=== PATIENT | female | born 1950 | race Hispanic/Latino ===

== ENCOUNTER 2018-05-14 12:27 | Inpatient (IN) | payer OTHER ==
[2018-05-14 13:37] LABS: Absolute Lymphocytes (CBC) 2.8 K/uL (0.7-4.9); Absolute Monocytes 0.4 K/uL (0.1-1.3); Absolute Neutrophil 4.9 K/uL (1.8-8.0); Basophils % 0.6 % (0-1.3); Eosinophils % 0.9 % (0-4.4); Hematocrit 40.3 % (36.0-45.0); Lymphocytes % 34.1 % (15.3-44.8); MCH 30.3 pg (27.0-35.0); MCV 89.9 fL (80-100); MPV 11.6 fL (7.6-11.3); Monocytes % 4.3 % (3.3-12.3); RBC Red Blood Cell Count 4.49 M/uL (3.86-4.86)
[2018-05-14 13:38] LABS: Protime INR 1.08
[2018-05-14 13:57] LABS: BUN Blood Urea Nitrogen 19 mg/dL (7-18); Bicarbonate 24 mmol/L (21-32); Glucose Level 112 mg/dL (74-106); NT PRO-BNP 332 pg/mL (<125); Potassium 3.3 mmol/L (3.5-5.1); Sodium Level 141 mmol/L (136-145); Troponin (Emerg Dept Use Only) < 0.02 ng/mL (0.0-0.045)
--- NOTE | 2018-05-14 14:31 | RAD REPORT ---
EXAM DESCRIPTION: Eddie Single View05/14/2018 1:40 pm CLINICAL HISTORY: Chest pain COMPARISON: 2010 FINDINGS: The lungs appear clear of acute infiltrate. The heart is normal size IMPRESSION: No acute abnormalities displayed
--- NOTE | 2018-05-14 14:38 | RAD REPORT ---
EXAM DESCRIPTION: CT - Thorax W/ Con - 05/14/2018 2:27 pm CLINICAL HISTORY: Chest pain COMPARISON: None TECHNIQUE: Computed axial tomography of the chest was obtained. 100 cc Isovue 300 was administered i ntravenously. All CT scans are performed using dose optimization technique as appropriate and may include automated exposure control or mA/KV adjustment according to patient size. FINDINGS: The lungs are clear. No mediastinal or hilar lymphadenopathy is seen. A pleural effusion is not present. A pericardial effusion is not seen Coronary arterial calcifications are seen Small hepatic cyst is present. An additional tiny low-density lesion within liver is too small to leda racterize by CT criteria IMPRESSION: Unremarkable CT chest
[2018-05-14] MEDS ORDERED: FENTANYL CITR 100 MCG/2 ML ONE (14:42)
[2018-05-14] MEDS ORDERED: MORPHINE 4 MG/ML SYR IV PRN ×2 (15:42→22:42)
[2018-05-14] MEDS ORDERED: ONDANSETRON 4 MG/2 ML VIAL IV PRN (15:42)
[2018-05-14] MEDS ORDERED: NITROGLYCERIN 0.4 MG/TAB SL PRN (15:42)
[2018-05-14] MEDS ORDERED: ACETAMINOPHEN 500 MG TAB PO PRN ×2 (15:42→22:42)
--- NOTE | 2018-05-14 15:55 | EDPHYS ---
Physician Documentation [facility] Name: Magi Rivas Age: 67 yrs Sex: Female : 1950 Arrival Date: 05/14/2018 Time: 12:31 Bed 7 Private MD: ED Physician Brandon Del Rosario HPI: 05/14 15:42 This 67 yrs old Female presents to ER via EMS with complaints of Pain All gs Over, Chest Pain. 15:42 The patient or guardian reports chest pain that is located primarily in the substernal gs area, anterior chest wall. Onset: this morning. The pain radiates to back. Associated signs and symptoms: Pertinent positives: shortness of breath. The chest pain is described as a heaviness, sharp. Duration: The patient or guardian reports multiple episodes, that wax and wane, with no pattern, the episodes last approximately 5 minute(s). Modifying factors: The symptoms are alleviated by nothing. the symptoms are aggravated by nothing. Severity of pain: At its worst the pain was severe in the emergency department the pain is unchanged. The patient has experienced similar episodes in the past, a few times. Historical: - Allergies: 12:36 Adhesives; sv 12:36 Codeine; sv - Home Meds: 12:36 losartan oral oral [Active]; sv - PMHx: 12:36 Hypertension; sv - Immunization history:: Adult Immunizations up to date. - Social history:: Smoking status: Patient/guardian denies using tobacco. - Ebola Screening: : No symptoms or risks identified at this time. ROS: 15:42 All other systems are negative. gs Exam: 15:42 Head/Face: Normocephalic, atraumatic. Eyes: Pupils equal round and reactive to light, gs extra-ocular motions intact. Lids and lashes normal. Conjunctiva and sclera are non-icteric and not injected. Cornea within normal limits. Periorbital areas with no swelling, redness, or edema. ENT: Nares patent. No nasal discharge, no septal abnormalities noted. Tympanic membranes are normal and external auditory canals are clear. Oropharynx with no redness, swelling, or masses, exudates, or evidence of obstruction, uvula midline. Mucous membranes moist. Neck: Trachea midline, no thyromegaly or masses palpated, and no cervical lymphadenopathy. Supple, full range of motion without nuchal rigidity, or vertebral point tenderness. No Meningismus. Chest/axilla: Normal chest wall appearance and motion. Nontender with no deformity. No lesions are appreciated. Cardiovascular: Regular rate and rhythm with a normal S1 and S2. No gallops, murmurs, or rubs. Normal PMI, no JVD. No pulse deficits. Respiratory: Lungs have equal breath sounds bilaterally, clear to auscultation and percussion. No rales, rhonchi or wheezes noted. No increased work of breathing, no retractions or nasal flaring. Abdomen/GI: Soft, non-tender, with normal bowel sounds. No distension or tympany. No guarding or rebound. No evidence of tenderness throughout. Back: No spinal tenderness. No costovertebral tenderness. Full range of motion. Skin: Warm, dry with normal turgor. Normal color with no rashes, no lesions, and no evidence of cellulitis. MS/ Extremity: Pulses equal, no cyanosis. Neurovascular intact. Full, normal range of motion. Neuro: Awake and alert, GCS 15, oriented to person, place, time, and situation. Cranial nerves II-XII grossly intact. Motor strength 5/5 in all extremities. Sensory grossly intact. Cerebellar exam normal. Normal gait. 15:42 Constitutional: The patient appears alert, awake. 15:42 ECG was reviewed by the Attending Physician. Vital Signs: 12:36 BP 166 / 74; Pulse 101; Resp 18; Temp 97.4; Pulse Ox 98% ; Pain 8/10; sv 13:19 BP 170 / 56; Pulse 103 MON; Resp 16; Pulse Ox 99% on R/A; sv 13:42 Pulse 83; Resp 16; Pulse Ox 100% on R/A; sv 14:30 BP 194 / 77; Pulse 108 MON; Resp 14; Pulse Ox 99% ; sv 15:00 BP 183 / 67; Pulse 96 MON; Resp 16; Pulse Ox 97% on R/A; sv 15:30 BP 185 / 77; Pulse 106; Resp 17; Pulse Ox 99% ; sv 16:30 BP 132 / 47; Pulse 85; Resp 18; Pulse Ox 99% ; sv 17:17 BP 113 / 50; Pulse 81; Resp 19; Pulse Ox 97% ; sv 13:19 Sinus tachycardia sv 14:30 Sinus tachycardia sv 15:00 Sinus Rhythm sv MDM: 12:51 Patient medically screened. 15:42 Differential diagnosis: acute myocardial infarction, coronary artery disease thoracic gs aortic disection, unstable angina. Data reviewed: vital signs, nurses notes. Response to treatment: the patient's symptoms have resolved after treatment, the patient's pain is gone. Admission orders: after a detailed discussion of the patient's condition and case, the admit orders are written by me. 05/14 12:58 Order name: Basic Metabolic Panel; Complete Time: 14:19 05/14 12:58 Order name: CBC with Diff; Complete Time: 14:19 05/14 12:58 Order name: NT PRO-BNP; Complete Time: 14:19 05/14 12:58 Order name: PT-INR; Complete Time: 14:19 05/14 12:58 Order name: Troponin (emerg Dept Use Only); Complete Time: 14:19 05/14 15:21 Order name: CPK 05/14 15:46 Order name: CBC with Automated Diff [facility] 05/14 15:46 Order name: Comprehensive Metabolic Panel [facility] 05/14 15:46 Order name: CKMB Creatine Kinase MB [facility] 05/14 15:47 Order name: CKMB Creatine Kinase MB [facility] 05/14 15:47 Order name: CKMB Creatine Kinase MB [facility] 05/14 15:47 Order name: CKMB Creatine Kinase MB [facility] 05/14 15:47 Order name: Creatine Phosphokinase [facility] 05/14 15:47 Order name: Creatine Phosphokinase [facility] 05/14 12:38 Order name: EKG; Complete Time: 12:38 sv 05/14 12:38 Order name: EKG - Nurse/Tech; Complete Time: 12:38 sv 05/14 12:58 Order name: XRAY Chest (1 view); Complete Time: 14:42 05/14 12:58 Order name: EKG; Complete Time: 12:59 05/14 12:58 Order name: Cardiac monitoring; Complete Time: 13:20 05/14 12:58 Order name: CT Chest W/ Con; Complete Time: 14:42 05/14 15:46 Order name: Heart Healthy [facility] 05/14 15:47 Order name: Creatine Phosphokinase [facility] 05/14 15:47 Order name: Creatine Phosphokinase [facility] 05/14 15:47 Order name: Lipid Profile [facility] 05/14 15:47 Order name: Lipid Profile [facility] 05/14 15:47 Order name: Troponin I [facility] 05/14 15:47 Order name: Troponin I [facility] 05/14 15:47 Order name: Troponin I [facility] 05/14 15:47 Order name: Troponin I [facility] 05/14 12:58 Order name: IV Saline Lock; Complete Time: 13:20 05/14 12:58 Order name: Labs collected and sent; Complete Time: 13:20 05/14 12:58 Order name: O2 Per Protocol; Complete Time: 13:20 05/14 12:58 Order name: O2 Sat Monitoring; Complete Time: 13:20 EC:42 Rate is 99 beats/min. Rhythm is regular. OH interval is normal. QRS interval is normal. gs QT interval is normal. T waves are Inverted. Administered Medications: 14:43 Drug: fentaNYL (PF) 50 mcg Route: IVP; Site: left antecubital; sv 15:28 Follow up: Response: No adverse reaction sv Disposition: 15:42 Critical Care:. gs Disposition: 05/14/18 15:53 Hospitalization ordered by Marita Garg for Observation. Preliminary diagnosis is Precordial pain. - Bed requested for Telemetry/MedSurg (observation). - Status is Observation. sv - Condition is Stable. - Problem is new. - Symptoms have improved. UTI on Admission? No Critical care time excluding procedures: 15:42 Critical care time: Bedside Care: 10 minutes, Consultation: 10 minutes, Family gs Intervention: 10 minutes. Total time: 30 minutes Signatures: [facility] G[facility] RN RN Brandon Del Rosario MD MD Lena Parker Corrections: (The following items were deleted from the chart) 13:20 12:58 EKG - Nurse/Tech ordered. sv 16:59 15:53 Hospitalization Ordered by Marita Garg MD for Observation. Preliminary eb diagnosis is Precordial pain. Bed requested for Telemetry/MedSurg (observation). Status is Observation. Condition is Stable. Problem is new. Symptoms have improved. UTI on Admission? No. gs 17:52 16:59 05/14/2018 15:53 Hospitalization Ordered by Marita Garg MD for Observation. sv Preliminary diagnosis is Precordial pain. Bed requested for Telemetry/MedSurg (observation). Status is Observation. Condition is Stable. Problem is new. Symptoms have improved. UTI on Admission? No. eb
--- NOTE | 2018-05-14 15:55 | ER ---
Nurse's Notes [facility] Name: Magi Rivas Age: 67 yrs Sex: Female : 1950 Arrival Date: 05/14/2018 Time: 12:31 Bed 7 Private MD: Diagnosis: Precordial pain Presentation: 05/14 12:21 Presenting complaint: EMS states: pt was lowered to the ground by bystanders after pt sv feeling like she was going to pass out. c/o pain all over, left hip and chest pain. Denies LOC. BP 112/42 HR-84 RR-20 97% RA. Transition of care: patient was not received from another setting of care. Onset of symptoms was May 14, 2018. Risk Assessment: Do you want to hurt yourself or someone else? Patient reports no desire to harm self or others. Initial Sepsis Screen: Does the patient meet any 2 criteria? No. Patient's initial sepsis screen is negative. Does the patient have a suspected source of infection? No. Patient's initial sepsis screen is negative. Care prior to arrival: IV initiated. 20 GA, in the left forearm. 12:21 Method Of Arrival: EMS: [facility] sv 12:21 Acuity: GERI 3 sv Triage Assessment: 12:21 General: Appears uncomfortable, well developed, Behavior is cooperative, anxious, sv fussy. Pain: Complains of pain in "all over" Pain currently is 8 out of 10 on a pain scale. Is continuous. EENT: No signs and/or symptoms were reported regarding the EENT system. Neuro: Level of Consciousness is awake, alert, obeys commands, Oriented to person, place, time, situation, Moves all extremities. Speech is normal. Cardiovascular: Patient's skin is warm and dry. Pulses are 3+ in right radial artery and left radial artery Rhythm is sinus tachycardia. Respiratory: Airway is patent Respiratory effort is even, unlabored, Respiratory pattern is regular, symmetrical. Derm: Skin is pink, warm \\T\\ dry. Historical: - Allergies: 12:36 Adhesives; sv 12:36 Codeine; sv - Home Meds: 12:36 losartan oral oral [Active]; sv - PMHx: 12:36 Hypertension; sv - Immunization history:: Adult Immunizations up to date. - Social history:: Smoking status: Patient/guardian denies using tobacco. - Ebola Screening: : No symptoms or risks identified at this time. Screenin:39 Abuse screen: Denies threats or abuse. Denies injuries from another. Nutritional sv screening: No deficits noted. Tuberculosis screening: No symptoms or risk factors identified. Fall Risk None identified. Assessment: 13:34 Reassessment: Patient appears in no apparent distress at this time. No changes from sv previously documented assessment. Patient and/or family updated on plan of care and expected duration. Pain level reassessed. Patient is alert, oriented x 3, equal unlabored respirations, skin warm/dry/pink. Pt noted to be crying intermittently. 14:43 Reassessment: Patient appears in no apparent distress at this time. No changes from sv previously documented assessment. Patient and/or family updated on plan of care and expected duration. Pain level reassessed. Patient is alert, oriented x 3, equal unlabored respirations, skin warm/dry/pink. 16:00 Reassessment: Patient appears in no apparent distress at this time. No changes from sv previously documented assessment. Patient and/or family updated on plan of care and expected duration. Pain level reassessed. Patient is alert, oriented x 3, equal unlabored respirations, skin warm/dry/pink. 17:17 Reassessment: Patient appears in no apparent distress at this time. Patient and/or sv family updated on plan of care and expected duration. Pain level reassessed. Patient is alert, oriented x 3, equal unlabored respirations, skin warm/dry/pink. Patient states symptoms have improved. Vital Signs: 12:36 BP 166 / 74; Pulse 101; Resp 18; Temp 97.4; Pulse Ox 98% ; Pain 8/10; sv 13:19 BP 170 / 56; Pulse 103 MON; Resp 16; Pulse Ox 99% on R/A; sv 13:42 Pulse 83; Resp 16; Pulse Ox 100% on R/A; sv 14:30 BP 194 / 77; Pulse 108 MON; Resp 14; Pulse Ox 99% ; sv 15:00 BP 183 / 67; Pulse 96 MON; Resp 16; Pulse Ox 97% on R/A; sv 15:30 BP 185 / 77; Pulse 106; Resp 17; Pulse Ox 99% ; sv 16:30 BP 132 / 47; Pulse 85; Resp 18; Pulse Ox 99% ; sv 17:17 BP 113 / 50; Pulse 81; Resp 19; Pulse Ox 97% ; sv 13:19 Sinus tachycardia sv 14:30 Sinus tachycardia sv 15:00 Sinus Rhythm sv ED Course: 12:25 Patient has correct armband on for positive identification. Placed in gown. Bed in low sv position. Side rails up X2. surveillance system monitor on. Pulse ox on. NIBP on. Door closed. Head of bed elevated. 12:31 Patient arrived in ED. sv 12:31 Ct Gutiérrez RN is Primary Nurse. sv 12:35 Triage completed. sv 12:36 Brandon Del Rosario MD is Attending Physician. gs 12:37 Arm band placed on. sv 12:38 Initial lab(s) drawn, by mt, EKG done, by ED staff, reviewed by Brandon Del Rosario MD. jb1 Inserted saline lock: 22 gauge in left antecubital area, using aseptic technique. Blood collected. 12:40 Patient maintains SpO2 saturation greater than 95% on room air. sv 13:32 X-ray(s) taken. sv 13:37 XRAY Chest (1 view) In Process Unspecified. EDMS 13:38 X-ray completed. Portable x-ray completed in exam room. jr1 14:26 CT completed. Patient moved to CT via stretcher. Patient moved back from CT. cw1 14:27 CT Chest W/ Con In Process Unspecified. EDMS 15:52 Marita Garg MD is Hospitalizing Provider. gs 17:22 No provider procedures requiring assistance completed. Patient admitted, IV remains in sv place. intact. Administered Medications: 14:43 Drug: fentaNYL (PF) 50 mcg Route: IVP; Site: left antecubital; sv 15:28 Follow up: Response: No adverse reaction sv Outcome: 15:53 Decision to Hospitalize by Provider. gs 17:21 Admitted to Tele accompanied by tech, family with patient, via stretcher, room 410, sv with chart, Report called to Nik CROWLEY 17:21 Condition: stable 17:21 Instructed on the need for admit. 17:52 Patient left the ED. sv Signatures: Dispatcher [employer] EDMS Salvador Johnston jb1 Ct Gutiérrez RN RN sv Amie Oseguera jr1 Roberta Yang cw1 Brandon Del Rosario MD MD gs
[2018-05-14] MEDS ORDERED: ENOXAPARIN 100 MG/ML SYR SQ SCH (16:00)
[2018-05-14] MEDS ORDERED: POTASSIUM CL SA 10 MEQ TAB PO ONE (17:47)
[2018-05-14] MEDS ORDERED: INFLUENZA VACCINE (for 3y+) 0.5 ML DOSE IMVAC ONE (19:00)
[2018-05-14] MEDS ORDERED: METOPROLOL TAR 50 MG TAB PO SCH (21:00)
[2018-05-14] MEDS ORDERED: ATORVASTATIN 20 MG TAB PO SCH (21:00)
[2018-05-14] MEDS ORDERED: ALPRAZOLAM 0.25 MG TABLET PO PRN (22:42)
[2018-05-14] MEDS: HYDRALAZINE HCL 25 MG TABLET PO SCH (23:14)
[2018-05-15] MEDS ORDERED: ASPIRIN 325 MG TAB PO ONE (00:05)
[2018-05-15] MEDS ORDERED: CLOPIDOGREL 75 MG TABLET PO ONE (00:06)
[2018-05-15] MEDS ORDERED: ENOXAPARIN 80 MG/0.8 ML SQ ONE (01:00)
[2018-05-15 01:14] LABS: Urine Appearance CLEAR; Urine Bilirubin NEGATIVE (NEG); Urine Blood NEGATIVE (NEG); Urine Color YELLOW; Urine Glucose NEGATIVE (NEG); Urine Protein NEGATIVE (NEG); Urine Specific Gravity >=1.030 (1.005-1.030); Urine Urobilinogen 0.2 mg/dL (0.2-1.0); Urine pH 5.5 (5.0-7.0)
[2018-05-15 01:16] LABS: Urine Microscopic Reflex NO UMIC
[2018-05-15] MEDS ORDERED: POTASSIUM CL SA 10 MEQ TAB PO ONE (03:00)
--- NOTE | 2018-05-15 04:32 | P.HP ---
Certification for Inpatient Patient admitted to: Inpatient With expected LOS: >2 Midnights Patient will require the following post-hospital care: None Practitioner: I am a practitioner with admitting privileges, knowledge of patient current condition, hospital course, and medical plan of care. Services: Services provided to patient in accordance with Admission requirements found in Title 42 Section 412.3 of the Code of Federal Regulations Patient History Date of Service: 05/14/18 Reason for admission: Non ST-elevation myocardial infarction History of Present Illness: Patient is a 67-year-old female with a history of hypertension who presents the hospital with generalized pain. Patient states that she was with a friend when she got really weak and lightheaded. She felt she may not be getting enough blood to her brain so she went and healed over. Shortly after doing this she collapse. When she came too family was by her side. She is not exactly sure how much time past but she thinks it was only a few min. Which she was awake she was having generalized pain she had pain in her chest and her abdomen and in her back. She states she was diaphoretic and short of breath as well. She has some nausea associated with this. She came into the emergency room for further evaluation. Her initial EKG did not reveal any significant abnormality in her troponins were negative. She was admitted for observation however when I came on her troponins have come back elevated. She is no longer having any chest pain. She will be admitted for inpatient for non ST elevation myocardial infarction Allergies codeine Allergy (Verified 05/14/18 17:11) Hives adhesive tape Adverse Reaction (Verified 05/14/18 17:11) Rash Home Medications: Hydralazine [Apresoline*] 100 mg PO Q6H 05/14/18 Losartan Potassium [Cozaar*] 100 mg PO DAILY 05/14/18 Naproxen Sodium [Aleve] 1 tab PO Q6H PRN 05/14/18 Pantoprazole [Protonix Tab*] 40 mg PO DAILY 05/14/18 Simethicone 1 tab PO TID 05/14/18 hydroCHLOROthiazide [Hydrochlorothiazide*] 25 mg PO DAILY 05/14/18 - Past Medical/Surgical History Has patient received pneumonia vaccine in the past: Yes Diabetic: No -: Hypertensive -: R shoulder surgery (tumor removal) -: R foot surgery (biopsy) -: L breast biopsy - Family History Father Family History: Reviewed- Non-Contributory - Social History Smoking Status: Never smoker Alcohol use: No CD- Drugs: No Caffeine use: Yes Place of Residence: Home Review of Systems 10-point ROS is otherwise unremarkable Physical Examination - Vital Signs Temperature: 99.3 F Blood Pressure: 143/63 Pulse: 85 Respirations: 18 Pulse Ox (%): 94 - Physical Exam General: Alert, In no apparent distress, Oriented x3 HEENT: Atraumatic, PERRLA, Mucous membr. moist/pink, EOMI, Sclerae nonicteric Neck: Supple, 2+ carotid pulse no bruit, No LAD, Without JVD or thyroid abnormality Respiratory: Clear to auscultation bilaterally, Normal air movement Cardiovascular: Regular rate/rhythm, Normal S1 S2, No murmurs Gastrointestinal: Normal bowel sounds, Soft and benign, Non-distended, No tenderness Musculoskeletal: No clubbing, No swelling, No tenderness Integumentary: No rashes Neurological: Normal gait, Normal speech, Normal strength at 5/5 x4 extr, Normal tone, Sensation intact, Cranial nerves 3-12 intact, Normal affect Lymphatics: No axilla or inguinal lymphadenopathy - Studies Laboratory Data (last 24 hrs) 05/14/18 15:45: Troponin I Cancelled 05/14/18 13:10: PT 12.7 H, INR 1.08 05/14/18 13:10: WBC 8.2, Hgb 13.6, Hct 40.3, Plt Count 250 05/14/18 13:10: Sodium 141, Potassium 3.3 L, BUN 19 H, Creatinine 0.70, Glucose 112 H Assessment & Plan - Problems (Diagnosis) (1) Acute myocardial infarction Current Visit: Yes Status: Acute (2) Hypertension Current Visit: Yes Status: Acute - Plan 1. Serial troponins and EKG 2. Cardiology consultation 3. Echocardiogram and further intervention per Cardiology 4. Anti-platelet therapy, anti coagulation, beta-rl, statin, and O2 as needed 5. IV morphine for pain 6. Nitro p.r.n. 7. Lipid profile 8. If patient starts having any signs of worsening chest pain and her symptoms are worsening then will transfer her to ICU. 9. GI and DVT prophylaxis Discharge Plan: Home Plan to discharge in: Greater than 2 days - Advance Directives Does patient have a Living Will: Yes Does patient have a Durable POA for Healthcare: No - Code Status/Comfort Care Code Status Assessed: Yes Code Status: Full Code Critical Care: No Time Spent Managing PTS Care (In Minutes): 50
[2018-05-15] MEDS: HYDRALAZINE HCL 25 MG TABLET PO SCH ×4 (06:17→23:58)
[2018-05-15 06:32] LABS: Absolute Lymphocytes (CBC) 3.9 K/uL (0.7-4.9); Absolute Monocytes 0.5 K/uL (0.1-1.3); Absolute Neutrophil 4.6 K/uL (1.8-8.0); Basophils % 0.8 % (0-1.3); Hematocrit 37.6 % (36.0-45.0); Lymphocytes % 42.3 % (15.3-44.8); MCH 30.6 pg (27.0-35.0); MPV 11.7 fL (7.6-11.3); Monocytes % 5.4 % (3.3-12.3); RBC Red Blood Cell Count 4.18 M/uL (3.86-4.86)
[2018-05-15] MEDS ORDERED: LISINOPRIL 10 MG TAB PO SCH (09:00)
[2018-05-15] MEDS ORDERED: ENOXAPARIN 40 MG/0.4 ML SQ SCH (09:00)
[2018-05-15] MEDS ORDERED: ASPIRIN 325 MG TAB PO SCH (09:00)
[2018-05-15] MEDS ORDERED: hydroCHLOROthiazide 12.5 MG CAP PO SCH (09:00)
[2018-05-15] MEDS: PANTOPRAZOLE 40MG TABLET PO SCH (09:52)
[2018-05-15] MEDS: LOSARTAN POTASSIUM 50 MG TABLET PO SCH (09:52)
[2018-05-15] MEDS: METOPROLOL TAR 50 MG TAB PO SCH ×2 (09:52→21:14)
[2018-05-15] MEDS: ASPIRIN EC 81 MG TAB PO SCH (09:53)
[2018-05-15] MEDS: SIMETHICONE 125 MG TAB PO SCH ×3 (10:15→21:15)
[2018-05-15] MEDS: NA CHLORIDE 0.9% 1,000 ML IV SCH (13:48)
[2018-05-15] MEDS: ONDANSETRON 4 MG/2 ML VIAL IV PRN (14:52)
--- NOTE | 2018-05-15 18:19 | PN ---
Subjective: The patient currently doing well. She has no chest pain. No shortness of breath. No a bdominal pain. No fever. No chills. She continued to have nausea as she moves and go to the [facility]. Her family at the bedside. Review of Systems: Otherwise normal. Physical Examination: Vital Signs: Blood pressure is 157/70, respiratory rate 16, pulse 68, temperature 97.8. General: The patient is alert and oriented x3. Does not look in any distress. HEENT: Atraumatic, normocephalic. PERRLA. Oral mucosa is moist. Neck: Supple. No JVD. No carotid bruits. Chest: Clear to auscultation. Good air entry. Heart: Regular rate and rhythm. S1, S2 normal. No gallop or murmur. Abdomen: Soft, nontender. No masses. No hepatosplenomegaly. Positive bowel sounds. Extremities: No clubbing, cyanosis, or edema. No calf tenderness. Neurologic: Grossly intact. Cranial nerves 2 through 12 intact. Normal sensation. Normal reflexes . Normal muscle strength. Laboratory Data: Labs today showed CBC within normal. Chemistry within normal except for chloride 1 08, BUN of 24, GFR of 72, triglycerides 92, cholesterol 218, LDL of 134. Initial troponin was less t ramirez 0.02, on 1 repeat went up to 1.89. ProBNP at 332. CAT scan of the chest was negative for pulmon nicolle embolism. Assessment And Plan: This is a 67-year-old female with history of hypertension, presented with chest pain. 1.Chest pain. Rule out myocardial infarction. The patient had a positive troponin. We will contin ue troponin check until it starts to trend down. Last was 1.87. Continue the patient on aspirin, Pl avix, full dose of Lovenox. Cardiology consult requested. Most likely, the patient will need a card iac cath with positive troponin. 2.Hyperlipidemia. The patient's LDL is high. She is currently on statin with Lipitor 20 mg once a day. 3.Hypertension, not well controlled. She is on hydralazine, losartan, and metoprolol. I will add I mdur 30 mL. 4.Mild renal insufficiency. I will hold her hydrochlorothiazide and give her slight hydration becau se the patient may need cardiac cath tomorrow and she will receive contrast. 5.Plan to discharge after hopefully cardiac cath whenever Cardiology clears the patient for discharg eGeraldo UNDERWOOD Voice ID: [id number] Report ID: [id number]
--- NOTE | 2018-05-15 19:16 | EKG ---
Test Date: 2018-05-14 Test Time: 12:30:04 Sales And Marketing Representative: LELAND MEASUREMENT RESULTS: Intervals: Rate: 99 [place]: 124 QRSD: 92 QT: 360 QTc: 462 [place]: P: 59 [place]: 124 QRS: 26 T: 177 INTERPRETIVE STATEMENTS: Normal sinus rhythm Possible Left atrial enlargement Marked ST abnormality, possible inferolateral subendocardial injury Abnormal ECG Compared to ECG 02/03/2011 08:30:26 ST (T wave) deviation now present Electronically Signed On 05-15-18 19:14:53 CDT by Tom Ovalle
[2018-05-15] MEDS ORDERED: ATORVASTATIN 20 MG TAB PO SCH (21:00)
[2018-05-15] MEDS: ENOXAPARIN 80 MG/0.8 ML SQ SCH (21:14)
--- NOTE | 2018-05-16 03:04 | CON ---
Date of Consultation: 05/15/2018 Reason For Consultation: Non-ST elevation myocardial infarction. History Of Present Illness: Ms. Rivas is 67, has a history of hypertension, came in with substerna l chest pressure, some diaphoresis, shortness of breath. No nausea, vomiting, PND, orthopnea, pedal edema, palpitations, or syncope. EKG was nonspecific. Troponin was 0.96 and 1.89 consistent with no n-ST elevation myocardial infarction. Past Medical History: Hypertension. Family History: Positive for heart disease. Review of Systems: Negative. Social History: Negative. Allergies: CODEINE AND ADHESIVE. Medications At Home: Losartan, hydralazine, Aleve, Protonix and hydrochlorothiazide. Physical Examination: Vital Signs: Stable, afebrile. HEENT: Negative. Neck: Supple with no bruit. Chest: Clear. Cardiac: Regular rhythm and rate. No murmurs, gallops, or rubs. Abdomen: Benign. Extremities: No clubbing, cyanosis, or edema. Diagnostic Data: As stated earlier. Impression And Plan: 1.Non-ST elevation myocardial infarction. 2.Hypertension. 3.Gastroesophageal reflux disease. 4.Generalized arthritis. Left heart catheterization was recommended to Ms. Rivas with possible intervention. She understand s the risk and the benefit of the procedure and she agrees to proceed. Meanwhile, I will continue on medication for now including Lovenox, low-dose beta-blockers, and aspirin. She will eventually need a statin to find any coronary artery disease. DINORAH/ERMA Voice ID: [id number] Report ID: [id number]
[2018-05-16 05:18] LABS: BUN Blood Urea Nitrogen 18 mg/dL (7-18); Bicarbonate 26 mmol/L (21-32); Glucose Level 94 mg/dL (74-106); Magnesium 2.1 mg/dL (1.8-2.4); Potassium 3.8 mmol/L (3.5-5.1); Sodium Level 142 mmol/L (136-145)
[2018-05-16] MEDS: LOSARTAN POTASSIUM 50 MG TABLET PO SCH (05:18)
[2018-05-16] MEDS: METOPROLOL TAR 50 MG TAB PO SCH (05:19)
[2018-05-16] MEDS: HYDRALAZINE HCL 25 MG TABLET PO SCH ×3 (05:19→16:36)
[2018-05-16] MEDS: ASPIRIN EC 81 MG TAB PO SCH (05:20)
[2018-05-16] MEDS: NA CHLORIDE 0.9% 1,000 ML IV SCH ×2 (05:29→16:06)
[2018-05-16] MEDS ORDERED: KCL 20 MEQ/100 mL IVPB 20 MEQ/100 ML BAG IV SCH (06:00)
[2018-05-16] MEDS: ENOXAPARIN 80 MG/0.8 ML SQ SCH (08:06)
[2018-05-16] MEDS: PANTOPRAZOLE 40MG TABLET PO SCH (08:06)
[2018-05-16] MEDS: SIMETHICONE 125 MG TAB PO SCH ×2 (08:06→14:00)
[2018-05-16] MEDS ORDERED: ISOSORBIDE MONO SR 30 MG TAB PO SCH (09:00)
--- NOTE | 2018-05-16 09:09 | EKG ---
Test Date: 2018-05-15 Test Time: 08:51:58 Transcription: KIRSTEN MEASUREMENT RESULTS: Intervals: Rate: 76 TX: 128 QRSD: 86 QT: 412 QTc: 463 [place]: P: 58 TX: 128 QRS: 17 T: 116 INTERPRETIVE STATEMENTS: Normal sinus rhythm ST & T wave abnormality, consider lateral ischemia Abnormal ECG Compared to ECG 05/14/2018 12:30:04 Possible ischemia now present ST (T wave) deviation still present Electronically Signed On 05-16-18 09:08:34 CDT by Anthony Meraz
[2018-05-16] MEDS ORDERED: HEPA 1000U/500MLS 1,000 UNIT/500 ML BAG IV ONE (11:17)
[2018-05-16] MEDS ORDERED: MIDAZOLAM HCL 2 MG/2 ML INJ ONE ×2 (11:41→12:10)
[2018-05-16] MEDS ORDERED: FENTANYL CITR 100 MCG/2 ML ONE (11:41)
[2018-05-16] MEDS ORDERED: NA CHLORIDE 0.9% 0 ML ONE (11:42)
[2018-05-16] MEDS ORDERED: ATROPINE SULF 1 MG/10 ML SYR IV ONE (11:42)
[2018-05-16] MEDS ORDERED: POTASSIUM CL SA 10 MEQ TAB PO ONE (12:00)
--- NOTE | 2018-05-16 13:14 | ECHO ---
HEIGHT: 4 ft 11 in WEIGHT: 157 lb 0 oz DATE OF STUDY: 05/16/[address]: Lizzy Beaver MD 2-DIMENSIONAL: YES M.MODE: YES DOPPLER: YES COLOR FLOW: YES TDS: PORTABLE: DEFINITY: BUBBLE STUDY: DIAGNOSIS: CONGESTIVE HEART FAILURE CARDIAC HISTORY: CATHERIZATION: NO SURGERY: NO PROSTHETIC VALVE: NO PACEMAKER: NO MEASUREMENTS (cm) DIASTOLIC (NORMALS) SYSTOLIC (NORMALS) IVSd 1.4 (0.6-1.2) LA Diam 3.1 (1.9-4.0) LVEF 71% LVIDd 4.2 (3.5-5.7) LVIDs 2.5 (2.0-3.5) %FS 40% LVPWd 1.3 (0.6-1.2) Ao Diam 2.2 (2.0-3.7) 2 DIMENSIONAL ASSESSMENT: RIGHT ATRIUM: NORMAL LEFT ATRIUM: NORMAL RIGHT VENTRICLE: NORMAL LEFT VENTRICLE: NORMAL TRICUSPID VALVE: NORMAL MITRAL VALVE: NORMAL PULMONIC VALVE: NORMAL AORTIC VALVE: NORMAL PERICARDIAL EFFUSION: NONE AORTIC ROOT: NORMAL LEFT VENTRICULAR WALL MOTION: NORMAL DOPPLER/COLOR FLOW: MILD TRICUSPID REGURGITATION. COMMENTS: MILD TRICUSPID REGURGITATION. NORMAL RIGHT VENTRICULAR SYSTOLIC PRESSURE. NORMAL LEFT VENTRICULAR SIZE AND FUNCTION. NO WALL MOTION ABNORMALITY. TECHNOLOGIST: HERIBERTO CORDERO
[2018-05-16] MEDS ORDERED: NITROGLYCERIN 0.4 MG/TAB SL PRN (15:00)
--- NOTE | 2018-05-16 16:27 | P.PN ---
Subjective Date of Service: 05/16/18 Chief Complaint: Non ST-elevation myocardial infarction Patient seen and examined at bedside. Case discussed with nursing staff reports no new concerns or complaints. Improved chest pain. Denies any associated shortness of breath, nausea vomiting. Review of Systems As noted above Physical Examination - Vital Signs Temperature: 98.1 F Blood Pressure: 156/62 Pulse: 60 Respirations: 20 Pulse Ox (%): 97 - Physical Exam General: Alert, In no apparent distress HEENT: Atraumatic, PERRLA, EOMI Neck: Supple, JVD not distended Respiratory: Clear to auscultation bilaterally, Normal air movement Cardiovascular: Regular rate/rhythm, Normal S1 S2 Gastrointestinal: Normal bowel sounds, No tenderness Musculoskeletal: No tenderness Integumentary: No rashes Neurological: Normal speech, Normal tone, Normal affect - Studies Medications List Reviewed: Yes Assessment And Plan - Plan Patient admitted for chest pain, rule out ACS. - chest pain, rule out. Patient had a positive troponin trending down. Patient currently on aspirin and Plavix with full-dose Lovenox. She is pending a cardiac catheterization today. Cardiology recommendations appreciated - Hyperlipidemia: patient's LDL was high. She is on statin, Lipitor 20 once a day, continue. - hypertension: Continue hydralazine, losartan on metoprolol along with the Imdur 30. May need to be discharged on the new 3 mg of Imdur along with her previous medications.
[2018-05-16] MEDS: ONDANSETRON 4 MG/2 ML VIAL IV PRN (16:36)
[2018-05-16] MEDS ORDERED: ACETAMINOPHEN 325 MG TABLET PO PRN (19:16)
--- NOTE | 2018-05-16 23:32 | OP ---
Surgeon: Tom Ovalle MD Pump Room Operator: Deb German. Admitted to Dr. Garg's service on 05/14/2018. Today, the patient underwent a left heart catheteri zation as an inpatient for non-ST elevation myocardial infarction. Procedure In Detail: She was brought to the cathode ray tube assembler, prepped and draped in the routine sterile fash ion, given 4 mg of Versed for IV sedation. The patient had a right common femoral artery access with a 6-[place] catheter. Angio-Seal was used to close the case. A 3.5 JL catheter, Tomasa was used to cannulate the left main. She had a 30% left main stenosis, 70% ostial circumflex that is nondominan t stenosis, proximal 40% to 50% LAD lesion, and a 40% proximal and mid RCA lesion. The patient orly ated the procedure well. There were no complications. Total conscious sedation was 30 minutes. Final Diagnosis: Moderate to severe coronary artery disease. Plan: We will plan for medical therapy. I will add beta blockers and Imdur and statin to her regime n. She can go home today after 2 hours of bedrest, and we will see her in the office in 2 weeks. If her symptoms worsen or she fails medical therapy, we will consider bypass surgery. The patient is a [employer] and does not agree to blood transfusion and that may be an issue at that time janette sky will be dealt with if she ever goes to surgery. DINORAH/ERMA Voice ID: [id number] Report ID: [id number]
== END 2018-05-16 20:52 | disposition home or self-care (01) | DRG 282 ==
LOC: SUPCPDRO 12:27 → ER 12:27 → OBSVTOIN 16:02 → INTOOBSV 16:02 → ERHOLD 16:02 → 4TH 17:22 → OBSVTOIN 05-15 04:30
PROVIDERS: ADMIT Internal Medicine; ATTEND Family Medicine
PROC: 4A023N7 Measurement of Cardiac Sampling and Pressure, Left Heart, Percutaneous Approach (ICD-10-PCS; principal; 2018-05-16)
PROC: B211YZZ Fluoroscopy of Multiple Coronary Arteries using Other Contrast (ICD-10-PCS; 2018-05-16)
DX: I21.4 Non-ST elevation (NSTEMI) myocardial infarction (principal); I10 Essential (primary) hypertension; Z88.5 Allergy status to narcotic agent; Z91.048 Other nonmedicinal substance allergy status; K21.9 Gastro-esophageal reflux disease without esophagitis; M19.90 Unspecified osteoarthritis, unspecified site; E78.5 Hyperlipidemia, unspecified; N28.9 Disorder of kidney and ureter, unspecified; I25.10 Atherosclerotic heart disease of native coronary artery without angina pectoris
CPT/HCPCS: 36415; 71045; 71260; 80048; 80061; 81003; 82550; 83735; 83880; 84132; 84484; 85025; 85610; 87086; 87088; 93005; 93306; 93454; 96374; 99285; C1760; C1893; G0008; J0583; J1650; J2250; J2405; J3010; J7030; Q2035; Q9967